=== PATIENT | male | born 1945 | race Asian ===

== ENCOUNTER 2022-09-11 15:12 | Observation (INO) | payer BC, OTHER ==
[2022-09-11 15:41] LABS: Absolute Lymphocytes (CBC) 1.1 K/uL (0.7-4.9); Hematocrit 43.2 % (39.6-49.0); MCV 95.6 fL (80-100); MPV 7.5 fL (7.6-11.3); Protime INR 1.01; RBC Red Blood Cell Count 4.52 M/uL (4.33-5.43)
[2022-09-11 15:51] LABS: SARS-CoV-2 Antigen Rapid Res Negative (Negative)
[2022-09-11] MEDS ORDERED: ASPIRIN 81 MG CHEWABLE TABLET ONE (15:55)
[2022-09-11 15:58] LABS: Albumin 3.8 g/dL (3.4-5.0); Bilirubin Direct 0.2 mg/dL (0-0.2); Bilirubin Total 0.7 mg/dL (0.2-1.0); Magnesium 2.4 mg/dL (1.8-2.4); Potassium 4.1 mmol/L (3.5-5.1); Protein, Total 7.6 g/dL (6.4-8.2); Troponin High Sensitivity 8.6 pg/mL (<58.9)
[2022-09-11 16:18] LABS: Thyroid Stimulating Hormone 2.47 uIU/mL (0.360-3.740)
--- NOTE | 2022-09-11 17:21 | RAD REPORT ---
EXAM DESCRIPTION: Vinny Single View09/11/2022 4:16 pm CLINICAL HISTORY: Chest pain COMPARISON: 2013 FINDINGS: The lungs appear clear of acute infiltrate. The heart is normal size IMPRESSION: No acute abnormalities displayed
--- NOTE | 2022-09-11 17:29 | ER ---
Nurse's Notes [facility] Name: Donaldo Del Real Age: 76 yrs Sex: Male : 1945 Arrival Date: 09/11/2022 Time: 15:16 Bed 7 Private MD: Mauro Wilson Diagnosis: Abnormal electrocardiogram [ECG] [EKG] Presentation: 09/11 15:32 Chief complaint: Patient states: he was seen in PCP's office earlier today. patient was ap3 sent over from there due to abnormal EKG. patient was told to take extra metoprolol, and is now reports being slightly dizzy on arrival to ED. Coronavirus screen: At this time, the client does not indicate any symptoms associated with coronavirus-19. Ebola Screen: No symptoms or risks identified at this time. Initial Sepsis Screen: Does the patient meet any 2 criteria? No. Patient's initial sepsis screen is negative. Does the patient have a suspected source of infection? No. Patient's initial sepsis screen is negative. Risk Assessment: Do you want to hurt yourself or someone else? Patient reports no desire to harm self or others. Onset of symptoms was September 11, 2022. 15:32 Method Of Arrival: Wheelchair ap3 15:32 Acuity: VENANCIO 3 ap3 Historical: - Allergies: 15:36 No Known Allergies; ap3 - Home Meds: 15:38 Lisinopril Oral [Active]; ap3 - PMHx: 15:38 Hypertensive disorder; ap3 - Immunization history:: Client reports receiving the 2nd dose of the Covid vaccine, Flu vaccine is up to date. - Social history:: Smoking status: Patient denies any tobacco usage or history of. Screenin:38 Abuse screen: Denies threats or abuse. Nutritional screening: No deficits noted. ap3 Tuberculosis screening: No symptoms or risk factors identified. Assessment: 15:36 General: Appears distressed, Behavior is calm, cooperative. Pain: Denies pain. Neuro: ap3 Level of Consciousness is awake, alert, obeys commands, Oriented to person, place, time, situation, Speech is normal. Cardiovascular: Patient's skin is warm and dry. Respiratory: Airway is patent Respiratory effort is even, unlabored, Respiratory pattern is regular, symmetrical. 17:30 Reassessment: ADMIT INITIATED. bp Vital Signs: 15:32 Pulse 57; Pulse Ox 100% on R/A; Weight 57.15 kg; Height 5 ft. 7 in. (170.18 cm); ap3 15:32 BP 155 / 90; Resp 18; ap3 15:58 BP 149 / 87; Pulse 64; Temp 98.5(O); Pulse Ox 100% on R/A; ap3 17:10 BP 162 / 88; Pulse 57; Pulse Ox 100% on R/A; ap3 18:07 BP 145 / 95; Pulse 64; Pulse Ox 100% on R/A; ap3 15:32 Body Mass Index 19.73 (57.15 kg, 170.18 cm) ap3 ED Course: 15:16 Patient arrived in ED. rg4 15:16 Mauro Wilson MD is Private Physician. rg4 15:16 El[facility] Lujan [facility]-C is [facility]. snw 15:16 Malik Soto MD is Attending Physician. snw 15:32 Diamante Lomax, CARLOS is Primary Nurse. ap3 15:35 Triage completed. ap3 15:38 Arm band placed on right wrist. ap3 15:38 Placed in gown. Bed in low position. Call light in reach. Side rails up X2. Adult w/ ap3 patient. cardiac monitor technician on. Pulse ox on. NIBP on. Door closed. Noise minimized. 16:18 XRAY Chest (1 view) In Process Unspecified. EDMS 16:30 Inserted saline lock: 20 gauge in right forearm, using aseptic technique. Blood bp collected. 17:28 Mauro Wilson MD is Hospitalizing Provider. snw 19:23 Primary Nurse role handed off by Diamante Lomax, CARLOS mw2 Administered Medications: 15:56 Drug: Aspirin Chewable Tablet 324 mg Route: PO; ap3 18:07 Follow up: Response: No adverse reaction ap3 Medication: 15:39 VIS not applicable for this client. ap3 Outcome: 17:29 Decision to Hospitalize by Provider. snw 1207 06:46 Patient left the ED. mw2 Signatures: Dispatcher [employer] EDME Elissa Lujan FNP-C PROSTHETICS TECHNICIAN-Trinity Jacobo rg4 Fausto Velarde RN RN bp Diamante Lomax RN RN ap3 Errol Willams mw2 Corrections: (The following items were deleted from the chart) 09/11 19:18 17:30 Inserted saline lock: 20 gauge in right forearm, using aseptic technique. Blood bp collected. bp 19:18 17:30 Inserted saline lock: 20 gauge in right forearm, using aseptic technique. Blood bp collected. bp
--- NOTE | 2022-09-11 17:29 | EDPHYS ---
Physician Documentation [facility] Name: Donaldo Del Real Age: 76 yrs Sex: Male : 1945 Arrival Date: 09/11/2022 Time: 15:16 Bed 7 Private MD: Mauro Wilson ED Physician Malik Soto HPI: 09/11 16:51 This 76 yrs old Male presents to ER via Wheelchair with complaints of Abnormal snw EKG. 16:51 The patient or guardian reports chest pain that is located primarily in the anterior snw chest wall, left. Onset: acutely. The pain does not radiate. Associated signs and symptoms: Pertinent positives: chest pressure. The chest pain is described as a pressure. Duration: The patient or guardian reports a single episode. Modifying factors: the symptoms are aggravated by pt took extra Lisinopril and metoprolol. Now pt c/o lightheadedness. The patient has not experienced similar symptoms in the past. Historical: - Allergies: 15:36 No Known Allergies; ap3 - Home Meds: 15:38 Lisinopril Oral [Active]; ap3 - PMHx: 15:38 Hypertensive disorder; ap3 - Immunization history:: Client reports receiving the 2nd dose of the Covid vaccine, Flu vaccine is up to date. - Social history:: Smoking status: Patient denies any tobacco usage or history of. ROS: 16:51 Constitutional: Negative for fever, chills, and weight loss, Eyes: Negative for injury, snw pain, redness, and discharge, ENT: Negative for injury, pain, and discharge, Neck: Negative for injury, pain, and swelling, Respiratory: Negative for shortness of breath, cough, wheezing, and pleuritic chest pain, Abdomen/GI: Negative for abdominal pain, nausea, vomiting, diarrhea, and constipation, Back: Negative for injury and pain, : Negative for injury, bleeding, discharge, and swelling, MS/Extremity: Negative for injury and deformity, Skin: Negative for injury, rash, and discoloration, Neuro: Negative for headache, weakness, numbness, tingling, and seizure, Psych: Negative for depression, anxiety, suicide ideation, homicidal ideation, and hallucinations. 16:51 Cardiovascular: Positive for chest pain, of the chest. Exam: 16:50 Constitutional: This is a well developed, well nourished patient who is awake, alert, snw and in no acute distress. Head/Face: Normocephalic, atraumatic. Eyes: Pupils equal round and reactive to light, extra-ocular motions intact. Lids and lashes normal. Conjunctiva and sclera are non-icteric and not injected. Cornea within normal limits. Periorbital areas with no swelling, redness, or edema. ENT: Nares patent. No nasal discharge, no septal abnormalities noted. Tympanic membranes are normal and external auditory canals are clear. Oropharynx with no redness, swelling, or masses, exudates, or evidence of obstruction, uvula midline. Mucous membranes moist. Neck: Trachea midline, no thyromegaly or masses palpated, and no cervical lymphadenopathy. Supple, full range of motion without nuchal rigidity, or vertebral point tenderness. No Meningismus. Chest/axilla: Normal chest wall appearance and motion. Nontender with no deformity. No lesions are appreciated. Respiratory: Lungs have equal breath sounds bilaterally, clear to auscultation and percussion. No rales, rhonchi or wheezes noted. No increased work of breathing, no retractions or nasal flaring. Abdomen/GI: Soft, non-tender, with normal bowel sounds. No distension or tympany. No guarding or rebound. No evidence of tenderness throughout. Back: No spinal tenderness. No costovertebral tenderness. Full range of motion. Skin: Warm, dry with normal turgor. Normal color with no rashes, no lesions, and no evidence of cellulitis. MS/ Extremity: Pulses equal, no cyanosis. Neurovascular intact. Full, normal range of motion. Neuro: Awake and alert, GCS 15, oriented to person, place, time, and situation. Cranial nerves II-XII grossly intact. Motor strength 5/5 in all extremities. Sensory grossly intact. Cerebellar exam normal. Normal gait. Psych: Awake, alert, with orientation to person, place and time. Behavior, mood, and affect are within normal limits. 16:50 Cardiovascular: Rate: normal, Rhythm: regular, Pulses: no pulse deficits are appreciated, Heart sounds: normal. Vital Signs: 15:32 Pulse 57; Pulse Ox 100% on R/A; Weight 57.15 kg; Height 5 ft. 7 in. (170.18 cm); ap3 15:32 BP 155 / 90; Resp 18; ap3 15:58 BP 149 / 87; Pulse 64; Temp 98.5(O); Pulse Ox 100% on R/A; ap3 17:10 BP 162 / 88; Pulse 57; Pulse Ox 100% on R/A; ap3 18:07 BP 145 / 95; Pulse 64; Pulse Ox 100% on R/A; ap3 15:32 Body Mass Index 19.73 (57.15 kg, 170.18 cm) ap3 MDM: 15:17 Patient medically screened. snw 17:29 The patient was given aspirin in the Emergency Department. Data reviewed: vital signs, snw nurses notes. Physician consultation: Mauro Wilson MD was called at 17:29, was contacted at 17:29, regarding admission, to the telemetry unit. would like consultation with Dr. Dr. Moore, discussed admission with Dr. Wilson, will place orders for serial cardiac enzymes. 09/11 15:16 Order name: Basic Metabolic Panel; Complete Time: 16:23 snw 09/11 15:16 Order name: CBC with Diff; Complete Time: 15:47 snw 09/11 15:16 Order name: LFT's; Complete Time: 16:23 snw 09/11 15:16 Order name: Magnesium; Complete Time: 16:23 snw 09/11 15:16 Order name: NT PRO-BNP; Complete Time: 16:23 snw 09/11 15:16 Order name: PT-INR; Complete Time: 15:47 snw 09/11 15:16 Order name: Troponin HS; Complete Time: 16:23 snw 09/11 15:16 Order name: SARS RAPID; Complete Time: 16:04 snw 09/11 16:02 Order name: Thyroid Stimulating Hormone; Complete Time: 16:23 EDMS 09/11 17:26 Order name: Troponin High Sensitivity EDMS 09/11 15:16 Order name: XRAY Chest (1 view); Complete Time: 17:25 snw 09/11 15:16 Order name: EKG; Complete Time: 15:17 snw 09/11 15:16 Order name: Cardiac monitoring; Complete Time: 15:32 snw 09/11 15:16 Order name: EKG - Nurse/Tech; Complete Time: 15:32 snw 09/11 15:16 Order name: IV Saline Lock; Complete Time: 15:32 snw 09/11 15:16 Order name: Labs collected and sent; Complete Time: 15:32 snw 09/11 17:26 Order name: Troponin High Sensitivity; Complete Time: 19:34 EDMS 09/11 17:26 Order name: Troponin High Sensitivity EDLA 09/11 18:20 Order name: CONS Physician Consult EDLA 09/11 18:20 Order name: Heart Healthy EDLA 09/11 18:20 Order name: EKG Electrocardiogram EDMS 09/11 18:20 Order name: Comprehensive Metabolic Panel EDLA 09/11 18:20 Order name: Comprehensive Metabolic Panel EDLA 09/11 18:20 Order name: Comprehensive Metabolic Panel EDLA 09/11 18:20 Order name: Comprehensive Metabolic Panel EDLA 09/11 15:16 Order name: O2 Per Protocol; Complete Time: 15:32 snw 09/11 15:16 Order name: O2 Sat Monitoring; Complete Time: 15:32 snw EC:30 Rate is 58 beats/min. Rhythm is regular. Left axis deviation noted. QRS is positive in snw leads V4, V5, V6. HI interval is prolonged. Clinical impression: Sinus bradycardia. Administered Medications: 15:56 Drug: Aspirin Chewable Tablet 324 mg Route: PO; ap3 18:07 Follow up: Response: No adverse reaction ap3 Disposition Summary: 09/11/22 17:29 Hospitalization Ordered Hospitalization Status: Observation snw Provider: Mauro Wilson snw Condition: Stable snw Problem: new snw Symptoms: are unchanged snw Bed/Room Type: Standard snw Location: Telemetry/MedSurg (observation)(09/12/22 05:59) Room Assignment: [facility][note 3](09/12/22 05:59) Diagnosis - Abnormal electrocardiogram [ECG] [EKG] snw Forms: - Medication Reconciliation Form snw - SBAR form snw Signatures: Dispatcher [employer] Sharri Medellin Martha RN RN Elissa Vela, ROOM SERVICE MANAGER-C ROOM SERVICE MANAGER-Diamante Gonzalez RN RN ap3 Corrections: (The following items were deleted from the chart) 17:13 15:27 THYROID STIMULAT HORMONE+C.LAB.BRZ ordered. EDMS EDMS 17:25 17:17 Troponin High Sensitivity ordered. EDMS EDMS 17:25 17:17 Troponin High Sensitivity ordered. EDMS EDMS 17:25 17:17 Troponin High Sensitivity ordered. EDMS EDMS 18:50 17:29 snw bd 19:23 17:29 Telemetry/MedSurg (observation) snw mw 19:23 18:50 214 bd mw 20:00 19:23 Telemetry/MedSurg (observation) mw mw 20:00 19:23 mw mw 09/12 05:59 12/06 20:00 [facility] ER HOLD mw mw 09/12 05:59 1206 20:00 ERHOLD- mw mw
[2022-09-11] MEDS ORDERED: HYDRALAZINE HCL 20 MG/ML VIAL IV PRN (18:18)
--- NOTE | 2022-09-11 18:24 | P.HP ---
Certification for Inpatient Patient admitted to: Observation With expected LOS: <2 Midnights Patient will require the following post-hospital care: None Practitioner: I am a practitioner with admitting privileges, knowledge of patient current condition, hospital course, and medical plan of care. Services: Services provided to patient in accordance with Admission requirements found in Title 42 Section 412.3 of the Code of Federal Regulations Patient History Date of Service: 09/11/22 Primary Care Provider: Katie Reason for admission: Chest pain equivalent History of Present Illness: Patient is an office patient of [employer]. He has a history of htn and evidently bph. The patient usually goes to the bathroom 3 times a night. Last few evenings he was going significantly more. He checked his blood pressure in the mornings. It was in the 160's He took his lisinopril 10mg. When there was no improvement he took a second. Then he took a metoprolol. He had some dizziness and called his daughter. She brought him to office. There he did not have any symptoms. His urine was positive with 70 leukocytes. His ekg showed peaked t waves in leads V3-V5. Considering his age. Sent him to the ER. He was found to have an inital negative troponin and chest xray was normal. Allergies No Known Allergies Allergy (Verified 07/22/14 16:49) Home Medications: Amlodipine [Norvasc*] 10 mg PO DAILY WITH BREAKFAST 07/22/14 Terbinafine HCl 250 mg PO DAILY 07/22/14 Review of Systems 10-point ROS is otherwise unremarkable General: Other (mild dizziness) Physical Examination - Physical Exam General: Alert, In no apparent distress HEENT: Atraumatic, PERRLA, Mucous membr. moist/pink, EOMI, Sclerae nonicteric Neck: Supple, 2+ carotid pulse no bruit, No LAD, Without JVD or thyroid abnormality Respiratory: Clear to auscultation bilaterally, Normal air movement Cardiovascular: Regular rate/rhythm, Normal S1 S2 Gastrointestinal: Normal bowel sounds, No tenderness Musculoskeletal: No tenderness Integumentary: No rashes Neurological: Normal gait, Normal speech, Normal strength at 5/5 x4 extr, Normal tone, Normal affect Lymphatics: No axilla or inguinal lymphadenopathy - Studies Laboratory Data (last 24 hrs) 09/11/22 15:26: PT 11.1, INR 1.01 09/11/22 15:26: WBC 4.30, Hgb 14.3, Hct 43.2, Plt Count 254 09/11/22 15:26: Sodium 135 L, Potassium 4.1, BUN 19 H, Creatinine 1.00, Glucose 102, Magnesium 2.4, Total Bilirubin 0.7, AST 21, ALT 27, Alkaline Phosphatase 78 Assessment and Plan - Problems (Diagnosis) (1) Chest pain Current Visit: Yes Status: Acute Plan: Will monitor troponins. Have him seen by Dr. Moore. However if his troponins remain negative. We can safely discharge him for outpatient work up. Qualifiers: Ischemic chest pain type: stable angina pectoris (2) HTN (hypertension) Current Visit: Yes Status: Acute Plan: restart his home dosage of lisinopril in the am Qualifiers: Hypertension type: primary hypertension Qualified Code(s): I10 - Essential (primary) hypertension (3) BPH loc w urin obs/LUTS Current Visit: Yes Status: Acute Plan: He has been stented by Dr. Stout in the past. Will start him on tamusolin. If no relief we can refer him as an outpatient to Dr. Hernandez. (4) UTI (urinary tract infection) Current Visit: Yes Status: Acute Plan: continue him on macrobid. Will order a u/a in the hospital Qualifiers: Urinary tract infection type: acute cystitis Hematuria presence: without hematuria Qualified Code(s): N30.00 - Acute cystitis without hematuria Discharge Plan: Home Plan to discharge in: 24 Hours - Advance Directives Does patient have a Living Will: No Does patient have a Durable POA for Healthcare: No - Code Status/Comfort Care Code Status Assessed: No Code Status: Full Code Physician Review: Patient Assessed, Agree with Above Assessment and Plan Critical Care: No Time Spent Managing Pts Care (In Minutes): 70
[2022-09-11] MEDS ORDERED: TAMSULOSIN 0.4 MG SR CAP PO SCH (21:00)
[2022-09-11] MEDS ORDERED: ENOXAPARIN 40 MG/0.4 ML SQ SCH (21:00)
[2022-09-12] MEDS ORDERED: HYDRALAZINE HCL 20 MG/ML VIAL ONE (00:52)
[2022-09-12] MEDS ORDERED: NITROFURAN MACRO 100 MG CAP PO ONE (00:52)
[2022-09-12] MEDS ORDERED: TAMSULOSIN 0.4 MG SR CAP ONE (00:52)
[2022-09-12] MEDS ORDERED: ENOXAPARIN 40 MG/0.4 ML SQ ONE (00:53)
[2022-09-12] MEDS: NITROFURAN MACRO 100 MG CAP PO SCH ×2 (01:02→10:37)
[2022-09-12 03:46] VITALS: BMI 19.5
[2022-09-12 05:21] LABS: Albumin 3.8 g/dL (3.4-5.0); Potassium 3.4 mmol/L (3.5-5.1); Protein, Total 7.6 g/dL (6.4-8.2)
--- NOTE | 2022-09-12 08:39 | P.DS ---
Admission Date: 09/11/22 Discharge Date: 09/12/22 Primary Care Provider: Katie Disposition: ROUTINE DISCHARGE Reason for Admission: Chest pain equivalent - Problems (1) Chest pain Current Visit: Yes Status: Acute Qualifiers: Ischemic chest pain type: stable angina pectoris (2) HTN (hypertension) Current Visit: Yes Status: Acute Qualifiers: Hypertension type: primary hypertension Qualified Code(s): I10 - Essential (primary) hypertension (3) BPH loc w urin obs/LUTS Current Visit: Yes Status: Acute (4) UTI (urinary tract infection) Current Visit: Yes Status: Acute Qualifiers: Urinary tract infection type: acute cystitis Hematuria presence: without hematuria Qualified Code(s): N30.00 - Acute cystitis without hematuria Brief History of Present Illness: Patient is an office patient of mine. He has a history of htn and evidently bph. The patient usually goes to the bathroom 3 times a night. Last few evenings he was going significantly more. He checked his blood pressure in the mornings. It was in the 160's He took his lisinopril 10mg. When there was no improvement he took a second. Then he took a metoprolol. He had some dizziness and called his daughter. She brought him to office. There he did not have any symptoms. His urine was positive with 70 leukocytes. His ekg showed peaked t waves in leads V3-V5. Considering his age. Sent him to the ER. He was found to have an inital negative troponin and chest xray was normal. Hospital Course: Patient was sent to the hospital due to EKG changes. Bp controlled. Troponins are negative. Will have him seen by Dr. Villa. If there is no objections we can send him home and do an outpatient work up Vital Signs/Physical Exam: Temp Pulse Resp BP Pulse Ox 97.7 F 77 19 136/79 97 09/12/22 04:00 09/12/22 04:00 09/12/22 04:00 09/12/22 04:00 09/12/22 04:00 General: Alert, In no apparent distress HEENT: Atraumatic, PERRLA, EOMI Neck: Supple, JVD not distended Respiratory: Clear to auscultation bilaterally, Normal air movement Cardiovascular: Regular rate/rhythm, Normal S1 S2 Gastrointestinal: Normal bowel sounds, No tenderness Musculoskeletal: No tenderness Integumentary: No rashes Neurological: Normal speech, Normal tone, Normal affect Lymphatics: No axilla or inguinal lymphadenopathy Laboratory Data at Discharge: WBC 4.30 K/uL (4.3-10.9) 09/11/22 15:26 Hgb 14.3 g/dL (13.6-17.9) 09/11/22 15:26 Hct 43.2 % (39.6-49.0) 09/11/22 15:26 Plt Count 254 K/uL (152-406) 09/11/22 15:26 PT 11.1 SECONDS (9.5-12.5) 09/11/22 15:26 INR 1.01 09/11/22 15:26 Sodium 135 mmol/L (136-145) L 09/12/22 04:46 Potassium 3.4 mmol/L (3.5-5.1) L D 09/12/22 04:46 BUN 14 mg/dL (7-18) 09/12/22 04:46 Creatinine 0.75 mg/dL (0.55-1.3) 09/12/22 04:46 Glucose 98 mg/dL (74-106) 09/12/22 04:46 Magnesium 2.4 mg/dL (1.8-2.4) 09/11/22 15:26 Total Bilirubin 1.0 mg/dL (0.2-1.0) 09/12/22 04:46 AST 17 U/L (15-37) 09/12/22 04:46 ALT 26 U/L (12-78) 09/12/22 04:46 Alkaline Phosphatase 74 U/L (45-117) 09/12/22 04:46 Home Medications: Amlodipine [Norvasc*] 10 mg PO DAILY WITH BREAKFAST 07/22/14 Terbinafine HCl 250 mg PO DAILY 07/22/14 Diet: Regular Activity: Ad leydi Followup: Mauro Wilson MD [Primary Care Provider] - Time spent managing pt's care (in minutes): 30
[2022-09-12] MEDS ORDERED: ASPIRIN EC 81 MG TAB PO SCH (09:00)
[2022-09-12] MEDS ORDERED: lisinopriL 10 MG TAB PO SCH (09:00)
[2022-09-12 11:14] VITALS: O2SAT 98
[2022-09-12 13:28] VITALS: BP 142/66; TEMP 98.4
--- NOTE | 2022-09-13 07:10 | ECHO ---
HEIGHT: 5 ft 7 in WEIGHT: 125 lb 0 oz DATE OF STUDY: 09/12/[address]: Minor Villa MD 2-DIMENSIONAL: YES M.MODE: YES DOPPLER: YES COLOR FLOW: YES TDS: PORTABLE: YES DEFINITY: BUBBLE STUDY: DIAGNOSIS: ABNORMAL ELECTROCARDIOGARM CARDIAC HISTORY: CATHERIZATION: SURGERY: PROSTHETIC VALVE: PACEMAKER: MEASUREMENTS (cm) DIASTOLIC (NORMALS) SYSTOLIC (NORMALS) IVSd 1.0 (0.6-1.2) LA Diam 3.2 (1.9-4.0) LVEF 71% LVIDd 3.4 (3.5-5.7) LVIDs 2.1 (2.0-3.5) %FS 40% LVPWd 1.1 (0.6-1.2) Ao Diam 2.1 (2.0-3.7) 2 DIMENSIONAL ASSESSMENT: RIGHT ATRIUM: NORMAL LEFT ATRIUM: NORMAL RIGHT VENTRICLE: NORMAL LEFT VENTRICLE: NORMAL TRICUSPID VALVE: NORMAL MITRAL VALVE: NORMAL PULMONIC VALVE: NORMAL AORTIC VALVE: NORMAL PERICARDIAL EFFUSION: NONE AORTIC ROOT: NORMAL LEFT VENTRICULAR WALL MOTION: NORMAL DOPPLER/COLOR FLOW: NORMAL COMMENTS: 1. NORMAL 2-DIMENSIONAL ECHOCARDIOGRAM WITH DOPPLER. 2. NO WALL MOTION ABNORMALITY 3. NO EFFUSION TECHNOLOGIST: JESSICA PEÑA
== END 2022-09-12 15:30 | disposition home or self-care (01) ==
LOC: ER 15:12 → ERHOLD 18:15 → 2ND 09-12 06:20
PROVIDERS: ADMIT Internal Medicine; ATTEND Internal Medicine
DX: R07.9 Chest pain, unspecified (principal); I10 Essential (primary) hypertension; N40.1 Benign prostatic hyperplasia with lower urinary tract symptoms; N30.00 Acute cystitis without hematuria; Z20.822 Contact with and (suspected) exposure to COVID-19
CPT/HCPCS: 93005 ×2; 93306; 85025; 80048; 36415; 83735; 85610; 80076; 84443; 84484 ×3; 80053; 83880; 71045; 87811; J0360; J1650; G0378

== ENCOUNTER 2023-04-20 11:46 | Observation (INO) | payer BC, OTHER ==
--- OUTSIDE RECORDS SUMMARY | 2023-04-20 11:50 | XMS REPORT | Continuity of Care Document ---
:1945 Author Organization [facility] t Address [address] [facility] [address] [place] [id number] Care Team Providers Name Role Phone Rupal Beasley Attending Clinician Unavailable Problems This patient has no known problems. Allergies, Adverse Reactions, Alerts This patient has no known allergies or adverse reactions. Medications This patient has no known medications. Procedures This patient has no known procedures. Encounters Start End Encounter Admission Attending Care Care Encounter Source Date/Time Date/Time Type Type Clinicians Facility Department ID 2023-04-[address] [facility] [id number] Common 10:45:01 Rupal [id number] [facility] 2023-01-31 Outpatient [facility] [id number] Common 10:52:02 [id number] [facility] 2023-01-30 Outpatient [facility] [id number] Common 14:44:01 [id number] [facility] Results This patient has no known results.
[2023-04-20 12:54] LABS: Absolute Lymphocytes (CBC) 1.1 K/uL (0.7-4.9); Hematocrit 43.1 % (39.6-49.0); Lymphocytes % 27.6 % (15.3-44.8); MCV 95.6 fL (80-100); MPV 8.3 fL (7.6-11.3)
[2023-04-20 13:05] LABS: Protime INR 0.97
[2023-04-20 13:22] LABS: Albumin 3.8 g/dL (3.4-5.0); Bilirubin Direct 0.2 mg/dL (0-0.2); Bilirubin Indirect, Calculated 0.5 mg/dL (0.2-0.8); Bilirubin Total 0.7 mg/dL (0.2-1.0); Magnesium 2.3 mg/dL (1.6-2.4); Potassium 4.1 mEq/L (3.5-5.1); Protein, Total 7.7 g/dL (6.4-8.2); Thyroid Stimulating Hormone 2.99 uIU/mL (0.358-3.740); Troponin High Sensitivity 7.3 pg/mL (<58.9)
--- NOTE | 2023-04-20 13:25 | RAD REPORT ---
EXAM DESCRIPTION: RAD - Chest Single View - 04/20/2023 1:05 pm CLINICAL HISTORY: PALPITATIONS Chest pain. COMPARISON: Chest Single View dated 09/11/2022; CHEST SINGLE VIEW dated 11/08/2013 FINDINGS: Portable technique limits examination quality. The lungs are emphysematous but grossly clear. The heart is mildly prominent. Aortic atherosclerosis. No displaced fractures. IMPRESSION: No acute intrathoracic process suspected. Prominent COPD.
[2023-04-20 13:27] LABS: Specific Gravity 1.009 (1.005-1.030); Urine Bacteria None Seen /HPF (<20); Urine Bilirubin NEGATIVE (Negative); Urine Blood Trace (Negative); Urine Clarity Clear (Clear); Urine Color Colorless (Yellow); Urine Glucose NEGATIVE (Negative); Urine Protein NEGATIVE (Negative); Urine RBC <5 /HPF (None Seen); Urine Urobilinogen Normal (Normal)
--- NOTE | 2023-04-20 13:30 | ER ---
Nurse's Notes [facility] Name: Donaldo Del Real Age: 77 yrs Sex: Male : 1945 Arrival Date: 04/20/2023 Time: 11:46 Bed 19 Private MD: Diagnosis: Persistent atrial fibrillation-WITH RVR, NEW ONSET;Essential (primary) hypertension Presentation: 04/20 12:01 Chief complaint: Palpitations and generalized weakness since this morning. Coronavirus hb screen: At this time, the client does not indicate any symptoms associated with coronavirus-19. Ebola Screen: No symptoms or risks identified at this time. Initial Sepsis Screen: Does the patient meet any 2 criteria? No. Patient's initial sepsis screen is negative. Does the patient have a suspected source of infection? No. Patient's initial sepsis screen is negative. Risk Assessment: Do you want to hurt yourself or someone else? Patient reports no desire to harm self or others. Onset of symptoms was April 20, 2023. 12:01 Method Of Arrival: Ambulatory hb 12:01 Acuity: VENANCIO 3 hb Triage Assessment: 16:50 General: Appears in no apparent distress. Behavior is calm, cooperative. Pain: Denies ap3 pain. Neuro: Level of Consciousness is awake, alert, obeys commands, Oriented to person, place, time. Cardiovascular: Patient's skin is warm and dry. Rhythm is atrial fibrillation. Respiratory: No deficits noted. Airway is patent Respiratory effort is even, unlabored, Respiratory pattern is regular, symmetrical. Historical: - Allergies: 12:03 No Known Allergies; hb - Home Meds: 12:03 lisinopril 10 mg oral tablet once [Active]; aspirin 81 mg Oral capsule daily [Active]; hb - PMHx: 12:03 Hypertensive disorder; hb - PSHx: 12:03 Hernia Repair; Thyroid; hb - Immunization history:: Adult Immunizations up to date. - Social history:: Smoking status: Patient/guardian denies using tobacco, the patient reports quitting approximately 19 years ago. Screenin:49 [facility] ED Fall Risk Assessment (Adult) History of falling in the last 3 months, ap3 including since admission No falls in past 3 months (0 pts). Abuse screen: Denies threats or abuse. Nutritional screening: No deficits noted. Tuberculosis screening: No symptoms or risk factors identified. Assessment: 16:49 General: report given to CARLOS Orozco. ap3 Vital Signs: 12:01 BP 153 / 105; Pulse 88; Resp 20; Temp 98.4(O); Pulse Ox 100% on R/A; Weight 58 kg; hb Height 5 ft. 6 in. ; Pain 0/10; 13:26 BP 158 / 100; Pulse 73; Pulse Ox 99% on R/A; ap3 12:01 Body Mass Index 20.64 (58.00 kg, 167.64 cm) hb 12:01 Pain Scale: Adult hb ED Course: 11:48 Patient arrived in ED. ts1 12:03 Triage completed. hb 12:03 Arm band placed on. hb 12:22 Diamante Lomax, CARLOS is Primary Nurse. ap3 12:25 Prakash Mosqueda MD is Attending Physician. keith 12:47 Initial lab(s) drawn, by ia, sent to lab. Inserted saline lock: 20 gauge in right ap3 forearm, using aseptic technique. 13:07 XRAY Chest (1 view) In Process Unspecified. EDMS 13:28 Connor Munroe is Hospitalizing Provider. keith 15:36 Admitting physician to see patient. ap3 16:49 Patient has correct armband on for positive identification. Bed in low position. Call ap3 light in reach. Side rails up X 1. Provided Education on: medication prior to administration . 16:50 No provider procedures requiring assistance completed. Patient admitted, IV remains in ap3 place. Administered Medications: 12:48 Drug: NS 0.9% IV 500 ml Route: IV; Rate: bolus; Site: right forearm; ap3 15:03 Follow up: IV Status: Completed infusion ap3 12:48 Drug: Metoprolol PO 50 mg Route: PO; ap3 15:03 Follow up: Response: No adverse reaction ap3 13:30 Drug: Enoxaparin Sub-Q 1 mg/kg Route: Sub-Q; Site: right lower abdomen; ap3 15:03 Follow up: Response: No adverse reaction ap3 13:30 Drug: Famotidine IVP 20 mg Route: IVP; Site: right forearm; ap3 15:03 Follow up: Response: No adverse reaction ap3 Medication: 16:49 VIS not applicable for this client. ap3 Outcome: 13:29 Decision to Hospitalize by Provider. keith 16:50 Admitted to [facility] ap3 16:50 Condition: good 16:50 Instructed on the need for admit. 17:16 Patient left the ED. mm9 Signatures: Dispatcher [employer] Prakash Cote MD MD cha Baxter, Heather, RN RN hb Prokisch, Amanda, RN RN ap3 Martinez, Maria mm9 Alba Silva PAS PAS ts1
--- NOTE | 2023-04-20 13:30 | EDPHYS ---
Physician Documentation [facility] Name: Donaldo Del Real Age: 77 yrs Sex: Male : 1945 Arrival Date: 04/20/2023 Time: 11:46 Bed 19 Private MD: ED Physician Prakash Mosqueda HPI: 04/20 13:23 This 77 yrs old Male presents to ER via Ambulatory with complaints of High Blood keith Pressure, Heart racing. 13:23 The patient has elevated blood pressure and discovered this at home, with a home keith device. Onset: The symptoms/episode began/occurred 1 day(s) ago. Historical: - Allergies: 12:03 No Known Allergies; hb - Home Meds: 12:03 lisinopril 10 mg oral tablet once [Active]; aspirin 81 mg Oral capsule daily [Active]; hb - PMHx: 12:03 Hypertensive disorder; hb - PSHx: 12:03 Hernia Repair; Thyroid; hb - Immunization history:: Adult Immunizations up to date. - Social history:: Smoking status: Patient/guardian denies using tobacco, the patient reports quitting approximately 19 years ago. ROS: 13:23 Constitutional: Negative for fever, chills, and weight loss, Eyes: Negative for injury, keith pain, redness, and discharge, ENT: Negative for injury, pain, and discharge, Neck: Negative for injury, pain, and swelling, Respiratory: Negative for shortness of breath, cough, wheezing, and pleuritic chest pain, Abdomen/GI: Negative for abdominal pain, nausea, vomiting, diarrhea, and constipation, Back: Negative for injury and pain, : Negative for injury, bleeding, discharge, and swelling, MS/Extremity: Negative for injury and deformity, Skin: Negative for injury, rash, and discoloration, Neuro: Negative for headache, weakness, numbness, tingling, and seizure, Psych: Negative for depression, anxiety, suicide ideation, homicidal ideation, and hallucinations, Allergy/Immunology: Negative for hives, rash, and allergies, Endocrine: Negative for neck swelling, polydipsia, polyuria, polyphagia, and marked weight changes, Hematologic/Lymphatic: Negative for swollen nodes, abnormal bleeding, and unusual bruising. 13:23 Cardiovascular: Positive for palpitations. Exam: 13:23 Constitutional: This is a well developed, well nourished patient who is awake, alert, keith and in no acute distress. Head/Face: Normocephalic, atraumatic. Eyes: Pupils equal round and reactive to light, extra-ocular motions intact. Lids and lashes normal. Conjunctiva and sclera are non-icteric and not injected. Cornea within normal limits. Periorbital areas with no swelling, redness, or edema. ENT: Nares patent. No nasal discharge, no septal abnormalities noted. Tympanic membranes are normal and external auditory canals are clear. Oropharynx with no redness, swelling, or masses, exudates, or evidence of obstruction, uvula midline. Mucous membranes moist. Neck: Trachea midline, no thyromegaly or masses palpated, and no cervical lymphadenopathy. Supple, full range of motion without nuchal rigidity, or vertebral point tenderness. No Meningismus. Chest/axilla: Normal chest wall appearance and motion. Nontender with no deformity. No lesions are appreciated. Respiratory: Lungs have equal breath sounds bilaterally, clear to auscultation and percussion. No rales, rhonchi or wheezes noted. No increased work of breathing, no retractions or nasal flaring. Abdomen/GI: Soft, non-tender, with normal bowel sounds. No distension or tympany. No guarding or rebound. No evidence of tenderness throughout. Back: No spinal tenderness. No costovertebral tenderness. Full range of motion. Male : Normal genitalia with no discharge or lesions. Skin: Warm, dry with normal turgor. Normal color with no rashes, no lesions, and no evidence of cellulitis. MS/ Extremity: Pulses equal, no cyanosis. Neurovascular intact. Full, normal range of motion. Neuro: Awake and alert, GCS 15, oriented to person, place, time, and situation. Cranial nerves II-XII grossly intact. Motor strength 5/5 in all extremities. Sensory grossly intact. Cerebellar exam normal. Normal gait. Psych: Awake, alert, with orientation to person, place and time. Behavior, mood, and affect are within normal limits. 13:23 Cardiovascular: Rate: tachycardic, actual rate is 104 bpm, Rhythm: irregularly irregular, Pulses: no pulse deficits are appreciated, Heart sounds: normal, Edema: is not appreciated, JVD: is noted bilaterally, to 1 cm. 13:23 ECG was reviewed by the Attending Physician. Vital Signs: 12:01 BP 153 / 105; Pulse 88; Resp 20; Temp 98.4(O); Pulse Ox 100% on R/A; Weight 58 kg; hb Height 5 ft. 6 in. ; Pain 0/10; 13:26 BP 158 / 100; Pulse 73; Pulse Ox 99% on R/A; ap3 12:01 Body Mass Index 20.64 (58.00 kg, 167.64 cm) hb 12:01 Pain Scale: Adult hb MDM: 12:25 Patient medically screened. [facility] 13:27 Differential diagnosis: arrythmia, dehydration, CVA. Data reviewed: vital signs, nurses keith notes, lab test result(s), EKG, radiologic studies, plain films. Consideration of Admission/Observation Patient was admitted/placed on observation. Escalation of care including admission/observation considered. I considered the following discharge prescriptions or medication management in the emergency department Medications were administered in the Emergency Department. See MAR. Test considered but Not performed: Ultrasound NO ECHO. Care significantly affected by the following chronic conditions: Hypertension. 04/20 12:25 Order name: Basic Metabolic Panel; Complete Time: 14: [facility] 04/20 12:25 Order name: CBC with Diff; Complete Time: 13: [facility] 04/20 12:25 Order name: LFT's; Complete Time: 14:04/20 12:25 Order name: Magnesium; Complete Time: 14:04/20 12:25 Order name: NT PRO-BNP; Complete Time: 14:05 04/20 12:25 Order name: PT-INR; Complete Time: 13:21 04/20 12:25 Order name: Troponin HS; Complete Time: 14:05 04/20 12:25 Order name: TSH; Complete Time: 14:[address] [facility] 04/20 12:25 Order name: Urinalysis w/ reflexes; Complete Time: 14:05 keith 04/20 12:25 Order name: Lipase; Complete Time: 14: [facility] 04/20 12:25 Order name: XRAY Chest (1 view); Complete Time: 14:05 keith 04/20 12:25 Order name: EKG; Complete Time: 12:26 04/20 12:25 Order name: Cardiac monitoring; Complete Time: 13:10 04/20 12:25 Order name: EKG - Nurse/Tech; Complete Time: 13:[address] [facility] 04/20 12:25 Order name: IV Saline Lock; Complete Time: 12:[address] [facility] 04/20 12:25 Order name: Labs collected and sent; Complete Time: 12:[address] [facility] 04/20 12:25 Order name: O2 Per Protocol; Complete Time: 12:[address] [facility] 04/20 12:25 Order name: O2 Sat Monitoring; Complete Time: 12:29 keith EC:23 Rate is 93 beats/min. Rhythm is irregularly irregular. QRS [place] is Normal. NE interval keith is normal. QRS interval is normal. QT interval is normal. No Q waves. T waves are Normal. No ST changes noted. Clinical impression: Atrial Fibrillation and No evidence of ischemia. Administered Medications: 12:48 Drug: NS 0.9% IV 500 ml Route: IV; Rate: bolus; Site: right forearm; ap3 15:03 Follow up: IV Status: Completed infusion ap3 12:48 Drug: Metoprolol PO 50 mg Route: PO; ap3 15:03 Follow up: Response: No adverse reaction ap3 13:30 Drug: Enoxaparin Sub-Q 1 mg/kg Route: Sub-Q; Site: right lower abdomen; ap3 15:03 Follow up: Response: No adverse reaction ap3 13:30 Drug: Famotidine IVP 20 mg Route: IVP; Site: right forearm; ap3 15:03 Follow up: Response: No adverse reaction ap3 Disposition Summary: 04/20/23 13:29 Hospitalization Ordered Hospitalization Status: Observation keith Provider: Connor Munroe cha Location: Telemetry/MedSurg (observation) keith Condition: Stable keith Problem: new keith Symptoms: have improved kieth Bed/Room Type: Standard keith Room Assignment: 409(04/20/23 16:38) eb Diagnosis - Persistent atrial fibrillation - WITH RVR, NEW ONSET keith - Essential (primary) hypertension keith Forms: - Medication Reconciliation Form keith - SBAR form keith Signatures: Dispatcher [employer] Prakash Cote MD MD cha Baxter, Heather RN RN Diamante Todd RN RN ap3 Esperanza Johnson Corrections: (The following items were deleted from the chart) 16:38 13:29 keith eb
[2023-04-20] MEDS ORDERED: FAMOTIDINE 20 MG/2 ML VIAL IV ONE (13:35)
[2023-04-20] MEDS ORDERED: ENOXAPARIN 60 MG/0.6 ML SQ ONE (13:35)
--- NOTE | 2023-04-20 16:20 | P.HP ---
Certification for Inpatient Patient admitted to: Observation With expected LOS: <2 Midnights Practitioner: I am a practitioner with admitting privileges, knowledge of patient current condition, hospital course, and medical plan of care. Services: Services provided to patient in accordance with Admission requirements found in Title 42 Section 412.3 of the Code of Federal Regulations Patient History Date of Service: 04/20/23 Reason for admission: Palpitation History of Present Illness: 77-year-old gentleman with a history of hypertension presented to the emergency department with complaint of palpitations of sudden onset last night. Patient noted to have rapid heart rate. No associated shortness of breath or chest pain. Patient also denied any dizziness. EKG done in the emergency department demonstrated atrial fibrillation. Patient denies any known history of A-fib. Initial troponin negative. Chest x-ray did not show any acute disease. Blood pressure was stable. He spontaneously converted to sinus with after a dose of metoprolol. Patient is hospitalized for further management. Allergies No Known Allergies Allergy (Verified 07/22/14 16:49) Home Medications: Amlodipine [Norvasc*] 10 mg PO DAILY WITH BREAKFAST 07/22/14 Terbinafine HCl 250 mg PO DAILY 07/22/14 - Past Medical/Surgical History -: Hypertension - Family History Mother -: Heart disease, Hypertension - Social History Smoking Status: Former smoker Alcohol use: No CD- Drugs: No Place of Residence: Home Review of Systems Other: Except as documented, all other systems reviewed and negative. Physical Examination - Physical Exam General: Alert, In no apparent distress, Oriented x3 HEENT: Mucous membr. moist/pink Neck: Supple, JVD not distended Respiratory: Clear to auscultation bilaterally, Normal air movement Cardiovascular: No edema, Regular rate/rhythm, Normal S1 S2 Capillary refill: <2 Seconds Gastrointestinal: Normal bowel sounds, Soft and benign, Non-distended, No tenderness Musculoskeletal: No swelling, No tenderness Integumentary: No rashes, No cyanosis Neurological: Normal speech, Normal strength at 5/5 x4 extr, Cranial nerves 3-12 intact Lymphatics: No axilla or inguinal lymphadenopathy - Studies Laboratory Data (last 24 hrs) 04/20/23 12:43: PT 10.7, INR 0.97 04/20/23 12:43: WBC 4.20 L, Hgb 14.2, Hct 43.1, Plt Count 224 04/20/23 12:43: Sodium 135 L, Potassium 4.1, BUN 25 H, Creatinine 0.97, Glucose 97, Magnesium 2.3, Total Bilirubin 0.7, AST 28, ALT 35, Alkaline Phosphatase 84, Lipase 42 Assessment and Plan - Problems (Diagnosis) (1) New onset atrial fibrillation Current Visit: Yes Status: Acute (2) HTN (hypertension) Current Visit: No Status: Acute Qualifiers: Hypertension type: primary hypertension Qualified Code(s): I10 - Essential (primary) hypertension - Plan Place patient under observation. Trend troponin Patient converted to sinus rhythm. Start low-dose metoprolol Cardiology consult Cardiac monitoring Obtain echocardiogram TSH and free T4 are within normal limits. Monitor and optimize electrolytes. CHADVAsc score of 2. Start Eliquis anticoagulation. Resume home antihypertensives. - Advance Directives Does patient have a Living Will: No Does patient have a Durable POA for Healthcare: No
[2023-04-20] MEDS ORDERED: ACETAMINOPHEN 500 MG TAB PO PRN (16:45)
[2023-04-20] MEDS ORDERED: ONDANSETRON 4 MG/2 ML VIAL IV PRN (16:45)
[2023-04-20 17:39] VITALS: BMI 20.3
[2023-04-20] MEDS: METOPROLOL TAR 25 MG TAB PO SCH (17:41)
[2023-04-21 01:14] LABS: Absolute Lymphocytes (CBC) 1.5 K/uL (0.7-4.9); Hematocrit 41.5 % (39.6-49.0); MCV 95.8 fL (80-100); MPV 8.1 fL (7.6-11.3); RBC Red Blood Cell Count 4.33 M/uL (4.33-5.43)
[2023-04-21 01:15] LABS: Protime INR 1.05
[2023-04-21 01:18] VITALS: O2SAT 99
[2023-04-21 01:30] LABS: Magnesium 2.2 mg/dL (1.6-2.4); Phosphorus 3.3 mg/dL (2.5-4.9); Potassium 3.9 mEq/L (3.5-5.1)
[2023-04-21] MEDS ORDERED: HYDRALAZINE HCL 20 MG/ML VIAL IV PRN (05:19)
[2023-04-21] MEDS: METOPROLOL TAR 25 MG TAB PO SCH (06:00)
[2023-04-21 12:09] VITALS: BP 150/80; TEMP 97.2
--- NOTE | 2023-04-21 13:34 | P.PN ---
Subjective Date of Service: 04/21/23 Chief Complaint: Palpitation Patient has no complaint. He has remained in sinus rhythm since admission. Telemetry current rate in sinus bradycardia. Physical Examination - Vital Signs Temperature: 97.2 F Blood Pressure: 150/80 Pulse: 55 Respirations: 16 Pulse Ox (%): 99 Assessment And Plan - Current Problems (Diagnosis) (1) New onset atrial fibrillation Current Visit: Yes Status: Acute (2) HTN (hypertension) Current Visit: No Status: Acute Qualifiers: Hypertension type: primary hypertension Qualified Code(s): I10 - Essential (primary) hypertension - Plan Physical Exam General: Alert, In no apparent distress, Oriented x3 HEENT: Mucous membr. moist/pink Neck: Supple, JVD not distended Respiratory: Clear to auscultation bilaterally, Normal air movement Cardiovascular: No edema, Regular rate/rhythm, Normal S1 S2 Gastrointestinal: Normal bowel sounds, Soft and benign, Non-distended, No tenderness Musculoskeletal: No swelling, No tenderness Integumentary: No rashes, No cyanosis Neurological: Normal speech, Normal strength at 5/5 x4 extr, Cranial nerves 3-12 intact Plan: Troponin trended negative. Patient has been in sinus bradycardia since admission Continue low-dose metoprolol for now Awaiting cardiology input Cardiac monitoring Echocardiogram is pending. TSH and free T4 are within normal limits. Monitor and optimize electrolytes. CHADVAsc score of 2. Start Eliquis anticoagulation. Continue home antihypertensives.
[2023-04-21] MEDS ORDERED: lisinopriL 10 MG TAB PO SCH (13:43)
--- NOTE | 2023-04-21 15:03 | P.DS ---
Admission Date: 04/20/23 Discharge Date: 04/21/23 Disposition: ROUTINE DISCHARGE Discharge Condition: FAIR Reason for Admission: Palpitation - Problems (1) New onset atrial fibrillation Current Visit: Yes Status: Acute (2) HTN (hypertension) Current Visit: No Status: Acute Qualifiers: Hypertension type: primary hypertension Qualified Code(s): I10 - Essential (primary) hypertension Brief History of Present Illness: 77-year-old gentleman with a history of hypertension presented to the emergency department with complaint of palpitations of sudden onset last night. Patient noted to have rapid heart rate. No associated shortness of breath or chest pain. Patient also denied any dizziness. EKG done in the emergency department demonstrated atrial fibrillation. Patient denies any known history of A-fib. Initial troponin negative. Chest x-ray did not show any acute disease. Blood pressure was stable. He spontaneously converted to sinus with after a dose of metoprolol. Patient was hospitalized for further management. Hospital Course: Patient was placed on observation on the medical floor. Troponin trended negative. He was asymptomatic during the hospital stay. He remained in sinus bradycardia. No arrhythmia. Patient was seen and evaluated by cardiology Dr. Moore who recommend outpatient follow-up. Metoprolol and Eliquis per Dr. Moore. Fall precautions advised. Patient vitals are stable for discharge. Vital Signs/Physical Exam: Temp Pulse Resp BP Pulse Ox 97.2 F 55 16 150/80 H 99 04/21/23 13:40 04/21/23 13:40 04/21/23 13:40 04/21/23 13:40 04/21/23 13:40 General: Alert, In no apparent distress, Oriented x3 HEENT: Mucous membr. moist/pink Neck: JVD not distended Respiratory: Clear to auscultation bilaterally, Normal air movement Cardiovascular: Regular rate/rhythm (Bradycardia), Normal S1 S2 Gastrointestinal: Normal bowel sounds, Soft and benign, Non-distended, No tenderness Musculoskeletal: No swelling Integumentary: No rashes, No cyanosis Neurological: Normal strength at 5/5 x4 extr Laboratory Data at Discharge: WBC 4.20 thou/uL (4.3-10.9) L 04/21/23 01:02 Hgb 13.6 g/dL (13.6-17.9) 04/21/23 01:02 Hct 41.5 % (39.6-49.0) 04/21/23 01:02 Plt Count 190 thou/uL (152-406) 04/21/23 01:02 PT 11.6 SECONDS (9.5-12.5) 04/21/23 01:02 INR 1.05 04/21/23 01:02 Sodium 139 mEq/L (136-145) 04/21/23 01:02 Potassium 3.9 mEq/L (3.5-5.1) 04/21/23 01:02 BUN 22 mg/dL (7-18) H 04/21/23 01:02 Creatinine 0.97 mg/dL (0.70-1.30) 04/21/23 01:02 Glucose 95 mg/dL (74-106) 04/21/23 01:02 Phosphorus 3.3 mg/dL (2.5-4.9) 04/21/23 01:02 Magnesium 2.2 mg/dL (1.6-2.4) 04/21/23 01:02 Total Bilirubin 0.7 mg/dL (0.2-1.0) 04/20/23 12:43 AST 28 U/L (15-37) 04/20/23 12:43 ALT 35 U/L (16-61) 04/20/23 12:43 Alkaline Phosphatase 84 U/L (45-117) 04/20/23 12:43 Triglycerides 55 mg/dL (<150) 04/21/23 01:02 Cholesterol 160 mg/dL (<200) 04/21/23 01:02 HDL Cholesterol 50 mg/dL (40-60) 04/21/23 01:02 Cholesterol/HDL Ratio 3.20 04/21/23 01:02 Lipase 42 U/L (13-75) 04/20/23 12:43 Home Medications: Aspirin 81 mg PO DAILY 04/20/23 Lisinopril [Zestril] 10 mg PO DAILY 04/20/23 Apixaban [Eliquis] 5 mg PO BID #60 tab 04/21/23 Metoprolol Tartrate [Lopressor*] 12.5 mg PO BID 6AM 6PM #30 tab 04/21/23 New Medications: Apixaban [Eliquis] 5 mg PO BID #60 tab Metoprolol Tartrate [Lopressor*] 12.5 mg PO BID 6AM 6PM #30 tab Diet: AHA Activity: Ad leydi Followup: Woo Moore MD [ACTIVE - CAN ADMIT] - 1-2 Weeks Navi Connor DO [Primary Care Provider] - 1-2 Weeks Time spent managing pt's care (in minutes): 27
[2023-04-21] MEDS ORDERED: APIXABAN 5 MG TABLET PO SCH (21:00)
[2023-04-22] MEDS ORDERED: ASPIRIN 81 MG CHEWABLE TABLET PO SCH (09:00)
--- NOTE | 2023-04-22 11:48 | EKG ---
Test Date: 2023-04-20 Test Time: 13:05:25 [employer]: ALP MEASUREMENT RESULTS: Intervals: Rate: 93 HI: QRSD: 82 QT: 348 QTc: 432 [place]: P: HI: QRS: -37 T: 63 INTERPRETIVE STATEMENTS: Atrial fibrillation Left axis deviation Anterior infarct, age undetermined Abnormal ECG Compared to ECG 06/22/2014 15:23:05 Left-axis deviation now present Myocardial infarct finding now present Electronically Signed On 04-22-23 11:45:22 CDT by Woo Moore
--- NOTE | 2023-04-22 19:26 | CON ---
Date of Consultation: 04/21/2023 Reason For Consultation: Atrial fibrillation. History Of Present Illness: A 77-year-old male with history of hypertension, who presented with palp itations and was feeling dizzy and lightheaded. No chest pain. Found to be in atrial fibrillation w ith rapid ventricular response. The patient converted to sinus rhythm and has been doing clinically well since hospitalization. Past Medical History: Hypertension. Medications: Refer to reconciliation sheet for detailed list. Allergies: NO KNOWN DRUG ALLERGIES. Family History: No premature coronary artery disease or cancer. Social History: He does not smoke or drink. Does not use any drugs. Review of Systems: All systems reviewed and they were negative except what mentioned in HPI. Physical Examination: Vital Signs: Reviewed. Head and Neck: Pupils are equal, reactive to light. Intact eye movements. No JVD. No cervical lym phadenopathy. Neck is supple. Thyroid is not enlarged. Lungs: Clear to auscultation bilaterally. No rhonchi, wheezing, or crackles. No accessory muscle u se. Heart: Regular rate and rhythm. No extra sounds. Abdomen: Soft, nontender. Bowel sounds positive. No organomegaly. No masses or hernia. No rigidi ty or rebound. Extremities: No edema, clubbing, or cyanosis. Intact pulses. Skin: No rash. Neurologic: Alert, awake, oriented x3. No acute focal deficits appreciated. Investigations: Troponins are negative. BUN is 22, creatinine 0.97, TSH is 2.9, and hemoglobin 13.6 . Assessment And Recommendations: 1.Atrial fibrillation with rapid ventricular response. Currently, he is in sinus rhythm. Continue Eliquis 5 mg twice a day. Start metoprolol 25 mg twice a day. The patient can be released to follow up as an outpatient. 2.Hypertension. Blood pressure is controlled. Continue home medications. Cardiology will sign off . SR/MODL Voice ID: [id number] Report ID: [id number]
== END 2023-04-21 16:25 | disposition home or self-care (01) ==
LOC: ER 11:46 → ERHOLD 15:56 → 4TH 16:54
PROVIDERS: ADMIT Internal Medicine; ATTEND Internal Medicine
DX: I48.91 Unspecified atrial fibrillation (principal); I10 Essential (primary) hypertension
CPT/HCPCS: 96361; 85025 ×2; 81001; 80048 ×2; 36415; 83735 ×2; 84100; 85610 ×2; 80061; 80076; 84443; 84484 ×4; 83690; 83880; 71045; 94760 ×3; 96372; 96374; 99285; J1650; J0360; 93005

== ENCOUNTER 2024-06-05 11:00 | Emergency (ER) | payer OTHER ==
[2024-06-05] MEDS ORDERED: LIDOCAINE 4% PATCH ONE (11:25)
[2024-06-05] MEDS ORDERED: MORPHINE 4 MG/ML SYR ONE (11:25)
[2024-06-05 11:26] LABS: Absolute Basophils 0.1 K/uL (0-0.5); Absolute Eosinophils 0.2 K/uL (0-0.5); Absolute Lymphocytes (CBC) 0.8 K/uL (0.7-4.9); Absolute Monocytes 0.6 K/uL (0.1-1.3); Absolute Neutrophil 4.1 K/uL (1.8-8.0); Eosinophils % 3.4 % (0-4.4); Hematocrit 42.5 % (39.6-49.0); Lymphocytes % 14.5 % (15.3-44.8); MCH 31.9 pg (27.0-35.0); MCV 96.7 fL (80-100); MPV 7.9 fL (7.6-11.3); Monocytes % 10.3 % (3.3-12.3); Neutrophils % 70.8 % (41.7-73.7); Platelets 208 thou/uL (152-406); RBC Red Blood Cell Count 4.39 M/uL (4.33-5.43); Red Cell Distribution Width 13.5 % (12.1-15.2)
[2024-06-05 11:43] LABS: Troponin High Sensitivity 7.2 pg/mL (<58.9)
--- NOTE | 2024-06-05 14:07 | ER ---
Nurse's Notes [facility] Name: Donaldo Del Real Age: 78 yrs Sex: Male : 1945 Arrival Date: 06/05/2024 Time: 11:00 Bed 13 Private MD: Diagnosis: Chest pain, unspecified Presentation: 06/05 11:09 Chief complaint: Patient states: CHEST PAIN STARTED LAST NIGHT KEPT PT UP ALL NIGHT AND db WORSE THIS AM. Coronavirus screen: Client denies travel out of the [place] in the last 14 days. At this time, the client does not indicate any symptoms associated with coronavirus-19. Ebola Screen: Patient negative for fever greater than or equal to 101.5 degrees Fahrenheit, and additional compatible Ebola Virus Disease symptoms Patient denies exposure to infectious person. Patient denies travel to an Ebola-affected area in the 21 days before illness onset. No symptoms or risks identified at this time. Initial Sepsis Screen: Does the patient meet any 2 criteria? No. Patient's initial sepsis screen is negative. Does the patient have a suspected source of infection? No. Patient's initial sepsis screen is negative. Risk Assessment: Do you want to hurt yourself or someone else? Patient reports no desire to harm self or others. Onset of symptoms was June 05, 2024. 11:09 Method Of Arrival: Ambulatory db 11:09 Acuity: VENANCIO 2 db Triage Assessment: 11:14 General: Appears in no apparent distress. uncomfortable, Behavior is anxious. Pain: db Complains of pain in chest. Neuro: Level of Consciousness is awake, alert, obeys commands, Oriented to person, place, time. Cardiovascular: Reports chest pain. Historical: - Allergies: :14 No Known Allergies; db - PMHx: 11:14 Hypertensive disorder; db - PSHx: 11:14 hernia repair; thyroid; db - Immunization history:: Adult Immunizations unknown. - Infectious Disease History:: Denies. - Social history:: Smoking status: Patient/guardian denies using tobacco, the patient reports quitting approximately 20 years ago. Screenin:10 [facility] ED Fall Risk Assessment (Adult) History of falling in the last 3 months, rs5 including since admission No falls in past 3 months (0 pts) Confusion or Disorientation No (0 pts) Intoxicated or Sedated No (0 pts) Impaired Gait No (0 pts) Mobility Assist Device Used No (0 pt) Altered Elimination No (0 pt) Score/Fall Risk Level 0 - 2 = Low Risk Oriented to surroundings, Maintained a safe environment. Abuse screen: Denies threats or abuse. Nutritional screening: No deficits noted. Tuberculosis screening: No symptoms or risk factors identified. Assessment: 11:10 General: Appears distressed, uncomfortable, Behavior is calm, cooperative. Pain: rs5 Complains of pain in chest Pain does not radiate. Pain currently is 9 out of 10 on a pain scale. Quality of pain is described as aching, Pain began 1 day ago. Is continuous. Neuro: Level of Consciousness is awake, alert, obeys commands, Oriented to person, place, time, situation. Cardiovascular: Patient's skin is warm and dry. Respiratory: Airway is patent Respiratory effort is even, unlabored, Respiratory pattern is regular, symmetrical. GI: Abdomen is round non-distended, Abd is soft and non tender X 4 quads. : No signs and/or symptoms were reported regarding the genitourinary system. EENT: No signs and/or symptoms were reported regarding the EENT system. Derm: Skin is intact, Skin is pink, warm \T\ dry. Musculoskeletal: Range of motion: intact in all extremities. 12:15 Reassessment: Patient and/or family updated on plan of care and expected duration. Pain rs5 level reassessed. Patient denies pain at this time. Patient states feeling better. Patient states symptoms have improved. 13:00 Reassessment: No changes from previously documented assessment. rs5 14:14 Reassessment: Patient and/or family updated on plan of care and expected duration. Pain rs5 level reassessed. Patient is alert, oriented x 3, equal unlabored respirations, skin warm/dry/pink. Patient denies pain at this time. Patient states feeling better. Patient states symptoms have improved. Vital Signs: 11:09 BP 170 / 88; Pulse 61; Resp 16; Temp 98.4(O); Pulse Ox 99% ; Weight 59 kg; Height 5 ft. db 6 in. ; 12:34 BP 146 / 99; Pulse 55; Resp 17; Pulse Ox 99% on R/A; rs5 14:00 BP 140 / 89; Pulse 61; Resp 17; Pulse Ox 99% ; rs5 11:09 Body Mass Index 20.99 (59.00 kg, 167.64 cm) db ED Course: 11:04 Patient arrived in ED. mg5 11:04 Perry Vang MD is Attending Physician. ec2 11:10 Patient has correct armband on for positive identification. Placed in gown. Bed in low rs5 position. Call light in reach. Side rails up X2. Client placed on continuous cardiac and pulse oximetry monitoring. NIBP monitoring applied. surveillance monitor on. Pulse ox on. NIBP on. 11:10 No provider procedures requiring assistance completed. rs5 11:14 Triage completed. db 11:14 Arm band placed on Patient placed in an exam room. db 11:15 Ramon Arguello, CARLOS is Primary Nurse. rs5 11:20 Inserted saline lock: 20 gauge in right forearm, using aseptic technique. rs5 11:20 Patient maintains SpO2 saturation greater than 95% on room air. rs5 11:42 XRAY Chest (1 view) In Process Unspecified. EDMS 14:00 IV discontinued, intact, bleeding controlled, No redness/swelling at site. Pressure rs5 dressing applied. 14:06 Mikaela Carlson MD is Referral Physician. ec2 Administered Medications: 11:30 Drug: morphine IVP or IV 4 mg IVP once over 4 mins Route: IVP; Infused Over: 4 mins; rs5 Site: right forearm; 12:01 Follow up: Response: No adverse reaction; Pain is decreased rs5 11:30 Drug: Lidoderm Topical Patch 5 % (700 mg/patch) 1 patches Topical once; leave on for 12 rs5 hours; cover most painful area; may cut into smaller pieces Route: Topical; Site: anterior chest wall; 12:01 Follow up: Response: No adverse reaction; Pain is decreased rs5 Medication: 12:34 VIS not applicable for this client. rs5 Outcome: 14:00 Discharged to home ambulatory, with family, rs5 14:00 Condition: stable 14:00 Discharge instructions given to patient, family, Instructed on discharge instructions, follow up and referral plans. medication usage, Demonstrated understanding of instructions, follow-up care, medications, Prescriptions given X 1, 14:07 Discharge ordered by MD. ec2 14:16 Patient left the ED. rs5 Signatures: Dispatcher [employer] EDMS Shari Taveras RN RN db Ramon Arguello RN RN rs5 Zina Quiroga mg5 Perry Vang MD MD ec2
--- NOTE | 2024-06-05 14:07 | EDPHYS ---
Physician Documentation [facility] Name: Donaldo Del Real Age: 78 yrs Sex: Male : 1945 Arrival Date: 06/05/2024 Time: 11:00 Bed 13 Private MD: ED Physician Perry Vang HPI: 06/05 11:17 This 78 yrs old Male presents to ER via Ambulatory with complaints of Chest Pain, ec2 High Blood Pressure. 11:17 Patient with history of high blood pressure arrives today for left-sided chest pain ec2 that is reproducible in nature. Patient reports symptom onset was last night. Patient reports no specific alleviating or exacerbating factors. Denies difficulty breathing. Reports otherwise no other chronic medical problems, no previous ACS history.. Historical: - Allergies: 11:14 No Known Allergies; db - PMHx: 11:14 Hypertensive disorder; db - PSHx: 11:14 hernia repair; thyroid; db - Immunization history:: Adult Immunizations unknown. - Infectious Disease History:: Denies. - Social history:: Smoking status: Patient/guardian denies using tobacco, the patient reports quitting approximately 20 years ago. ROS: 11:17 Constitutional: as per hpi ec2 Exam: 11:17 Constitutional: GEN: NAD Head: atraumatic Eyes: EOMI Ears: External ears are ec2 normal. CV: regular rate LUNGS: no respiratory distress ABD: non-distended SKIN: no evidence of rashes MSK: Reproducible left lower chest wall TTP without deformities or crepitus appreciated. Vital Signs: 11:09 BP 170 / 88; Pulse 61; Resp 16; Temp 98.4(O); Pulse Ox 99% ; Weight 59 kg; Height 5 ft. db 6 in. ; 12:34 BP 146 / 99; Pulse 55; Resp 17; Pulse Ox 99% on R/A; rs5 14:00 BP 140 / 89; Pulse 61; Resp 17; Pulse Ox 99% ; rs5 11:09 Body Mass Index 20.99 (59.00 kg, 167.64 cm) db MDM: 11:04 Patient medically screened. ec2 11:11 ED course: EKG independently reviewed and interpreted by me, shows sinus rhythm, rate ec2 of 60, does have some ST elevation in V3, no other elevations in contiguous leads, no reciprocal changes. Intervals are nonactionable.. 11:17 Data reviewed: vital signs. ED course: Patient arrives today for left-sided chest pain. ec2 Examination remarkable for reproducible chest wall TTP. Will obtain lab work, chest x-ray. Differential includes ACS, doubt PE or dissection. Additionally considering msk pain. . 11:50 ED course: Metabolic profile reassuring, CBC reassuring, troponin within normal ranges. ec2 Will obtain repeat EKG and troponin at 130. . 11:51 ED course: I discussed the case with the patient's primary care doctor, Dr. Carlson who ec2 evaluated the patient at bedside . 13:29 ED course: Repeat EKG independently reviewed and interpreted by me, appears unchanged ec2 compared to initial, sinus rhythm, rate of 54, no acute ST segment elevations, no marked changes from initial. . 13:54 ED course: I discussed case with Dr. Carlson, recommended following up with him in clinic. ec2 Will discharge home. Return precautions given.. 14:06 ED course: Chest x-ray independently reviewed and interpreted by me, shows no acute ec2 intrathoracic abnormality. Will discharge home, suspect costochondritis. Return precautions given. . 06/05 11:04 Order name: Basic Metabolic Panel; Complete Time: 11:50 ec2 06/05 11:04 Order name: CBC with Diff; Complete Time: 11:50 ec2 06/05 11:04 Order name: Troponin HS; Complete Time: 11:50 ec2 06/05 11:35 Order name: D-Dimer; Complete Time: 12:00 ec2 06/05 12:52 Order name: Troponin High Sensitivity; Complete Time: 13:53 rs5 06/05 11:04 Order name: XRAY Chest (1 view) ec2 06/05 11:04 Order name: Cardiac monitoring; Complete Time: 11:16 ec2 06/05 11:04 Order name: EKG - Nurse/Tech; Complete Time: 11:16 ec2 06/05 11:04 Order name: IV Saline Lock; Complete Time: 11:16 ec2 06/05 11:04 Order name: Labs collected and sent; Complete Time: 11:16 ec2 06/05 11:04 Order name: O2 Per Protocol; Complete Time: 11:16 ec2 06/05 11:04 Order name: O2 Sat Monitoring; Complete Time: 11:16 ec2 06/05 11:50 Order name: Misc. Order: repeat ekg/trop at 1330; Complete Time: 14:14 ec2 06/05 13:24 Order name: EKG - Nurse/Tech; Complete Time: 14:14 ec2 Administered Medications: 11:30 Drug: morphine IVP or IV 4 mg IVP once over 4 mins Route: IVP; Infused Over: 4 mins; rs5 Site: right forearm; 12:01 Follow up: Response: No adverse reaction; Pain is decreased rs5 11:30 Drug: Lidoderm Topical Patch 5 % (700 mg/patch) 1 patches Topical once; leave on for 12 rs5 hours; cover most painful area; may cut into smaller pieces Route: Topical; Site: anterior chest wall; 12:01 Follow up: Response: No adverse reaction; Pain is decreased rs5 Disposition Summary: 06/05/24 14:07 Discharge Ordered Condition: Stable ec2 Diagnosis - Chest pain, unspecified ec2 Followup: ec2 - With: Mikaela Carlson MD - When: - Reason: Recheck today's complaints Discharge Instructions: - Discharge Summary Sheet ec2 - Nonspecific Chest Pain, Adult, [id number] ec2 Forms: - Medication Reconciliation Form ec2 - Antibiotic Education ec2 - Prescription Opioid Use ec2 - Patient Portal Instructions ec2 - Leadership Thank You Letter ec2 Prescriptions: - meloxicam 15 mg Oral tablet - take 1 tablet ORAL route daily; 14 tablet; Refills: 0, Product Selection ec2 Permitted Signatures: Dispatcher [employer] Shari Jay RN RN db Ramon Arguello RN RN rs5 Perry Vang MD MD ec2 Corrections: (The following items were deleted from the chart) 11:05 11:05 BASIC METABOLIC PANEL+C.LAB.BRZ ordered. EDMS EDMS 11:05 11:05 CBC+H.LAB.BRZ ordered. EDMS EDMS 11:05 11:05 Troponin High Sensitivity+C.LAB.BRZ ordered. EDMS EDMS 11:05 11:05 Chest Single View+RAD.RAD.BRZ ordered. EDMS EDMS
--- NOTE | 2024-06-05 14:17 | RAD REPORT ---
EXAM DESCRIPTION: RAD - Chest Single View - 06/05/2024 2:05 pm CLINICAL HISTORY: CHEST PAIN Chest pain. COMPARISON: Chest Single View dated 04/20/2023; Chest Single View dated 09/11/2022; CHEST SINGLE VIEW dated 11/08/2013 FINDINGS: Portable technique limits examination quality. The lungs are grossly clear. The heart is mildly enlarged in size. Trace left effusion. No displaced fractures.Aortic atherosclerosis. IMPRESSION: No acute intrathoracic process suspected.
[2024-06-05 14:34] VITALS: O2SAT 99
[2024-06-05 14:36] VITALS: TEMP 98.4
[2024-06-05 14:37] VITALS: BP 140/89
--- NOTE | 2024-06-06 14:00 | EKG ---
Test Date: 2024-06-05 Test Time: 11:08:15 Molded Candles Wicker: KARISSA MEASUREMENT RESULTS: Intervals: Rate: 60 WA: 226 QRSD: 82 QT: 396 QTc: 396 [place]: P: 55 WA: 226 QRS: -36 T: 55 INTERPRETIVE STATEMENTS: Sinus rhythm with 1st degree AV block Left axis deviation Anterior infarct, age undetermined Abnormal ECG Compared to ECG 04/20/2023 13:05:25 First degree AV block now present Atrial fibrillation no longer present Myocardial infarct finding still present Electronically Signed On 06-06-24 13:59:37 CDT by Shyam Dumont
--- NOTE | 2024-06-09 12:50 | EKG ---
Test Date: 2024-06-05 Test Time: 13:20:49 Television Schedule Coordinator: GILBERT MEASUREMENT RESULTS: Intervals: Rate: 54 PA: 234 QRSD: 86 QT: 442 QTc: 419 [place]: P: 62 PA: 234 QRS: -10 T: 50 INTERPRETIVE STATEMENTS: Sinus bradycardia with 1st degree AV block Possible Left atrial enlargement Possible Anterior infarct, age undetermined Abnormal ECG Compared to ECG 06/05/2024 11:08:15 Sinus rhythm no longer present Left-axis deviation no longer present Myocardial infarct finding still present Electronically Signed On 06-09-24 12:43:19 CDT by Shyam Dumont
== END 2024-06-05 14:16 | disposition home or self-care (01) ==
LOC: ER 11:00
DX: R07.9 Chest pain, unspecified (principal); I10 Essential (primary) hypertension
CPT/HCPCS: 93005; 85025; 80048; 36415; 85379; 84484 ×2; 71045; 96374; 99285; J2001